=== PATIENT | male | born 1960 | race Caucasian/White ===

== ENCOUNTER → 2018-05-14 14:01 | Outpatient (CLI) | payer OTHER, SELFPAY ==
--- NOTE | 2018-05-14 15:41 | DIET.PN ---
Met for an initial nutrition consultation. Recently dx HIV +. Has been dealing w/depression as a result. Made decision to really start taking care of himself - lose wt, meditation, eat right, etc. Takes a lot of vitamins per recs for HIV. Months ago pt's son put him on a strict fasting diet - fasting for 12-16 hr daily (8pm to 10am), limiting portions and exercise. STarted running 5mi daily or 50mi/week. Lost 37# and B/P decreased. But continues to be plagued by GI discomfort while has been a problem since he was a child, though seems even worse. DX: hyperlipidemia, lactose intolerance, IBS (self dx) GI SX: diarrhea 4-5X daily, urgency, bloating, stomach cramps. Reports sx improved when cut out dairy, but still has frequent episodes - when dining out, after eating pasta or bread. Ht: 69 Wt: 191# Down from 228# Wt Goal: 185# Meds/supplements: B/P med, Genvoya (HIV), statin, Fish oil, MVI, Vit D-2000IU, Vit C-1000IU, [id number] (RDI 2.4mcg), beta carotene 25,000IU, Turmeric-1000mg, Green tea Assessment: Symptoms described sound like IBS. In particular, pt may not tolerate fructans and lactose. Intervention: Provided ed on IBS, FODMAPS and FODMAP elimination/challenge diet. Reviewed diet for hyperlipidemia - suspect lipids will come down w/wt loss and exercise. Plan: Pt will purchase book, Free at Last Elimination diet for 2 weeks Keep food and symptom journal F/U in 3 weeks to pursue challenge phase
== END ==
PROVIDERS: Visit Provider Family Medicine
DX: E78.5 Hyperlipidemia, unspecified (principal)
CPT/HCPCS: 97802

== ENCOUNTER → 2018-06-04 15:13 | Outpatient (CLI) | payer OTHER, SELFPAY ==
--- NOTE | 2018-06-04 15:58 | DIET.PN ---
Met for f/u consultation. Troy purchased the IBS book - an older version, unfortunately as it does not contain as much up to date information. He did follow the elimination diet with only 2 exceptions: One meal, his added something that affected him and on his birthday, he added onions to dish we prepared. He did not react to the onions. For two weeks on the elimination diet, Troy had no GI symptoms other than the one incident mentioned above. He felt normal for first time in many years and is excited to move on to the challenge phase. DX: GI issues, presumed IBS Assessment: Absence of GI issues while on elimination diet suggests the highly fermentable carbohydrates are his problem. We now have the task of narrowing down which ones. Intervention: Since pt added onions, suggested he start with a challenge of the Fructans group which includes onions. This will help rule out any intolerance to this category of FODMAPs. Challenge is done in 2 days to be followed by 3 days of elimination diet before trying challenging another category. Printed instructions on challenge phase and worksheets, as pt's book did not contain these. Overall, challenge phase should last about one month. Plan: Challenge Fructans, followed by the 4 other categories of FODMAPs. To keep records of which foods he challenges and his reactions. If needs f/u at that point will call for appointment, otherwise, may proceed with working out limitations of FODMAPS he does not tolerate.
== END ==
PROVIDERS: Visit Provider Family Medicine
DX: K58.9 Irritable bowel syndrome, unspecified (principal)
CPT/HCPCS: 97803

== ENCOUNTER → 2018-07-27 13:44 | Outpatient (CLI) | payer OTHER, SELFPAY ==
[2018-07-27 16:26] LABS: Urine N gonorrhoeae DETECTED
[2018-07-27 16:38] LABS: Urine Chlamydia NOT DETECTED
== END ==
PROVIDERS: Visit Provider Physician Assistant
DX: R30.0 Dysuria (principal)
CPT/HCPCS: 87491; 87591

== ENCOUNTER → 2020-03-12 09:35 | Outpatient (CLI) | payer OTHER, SELFPAY ==
[2020-03-12 10:40] LABS: Hemoglobin A1C% w Est Avg Glu 4.8 % (4.0-6.0)
[2020-03-12 11:03] LABS: Cholesterol 109 mg/dL (140-199); HDL Cholesterol 41 mg/dL (40-60); LDL Cholesterol Calculated 59 mg/dL (<100); Triglycerides 46 mg/dL (35-150)
[2020-03-13 05:21] LABS: RPR Screen Non Reactive (Non Reactive)
[2020-03-13 08:36] LABS: HCV AB <0.1 s/co ratio (0.0-0.9)
== END ==
PROVIDERS: PCP Family Medicine; Referring Provider Family Medicine; Visit Provider Family Medicine
DX: Z13.1 Encounter for screening for diabetes mellitus (principal); Z13.220 Encounter for screening for lipoid disorders
CPT/HCPCS: 36415; 80061; 83036; 86592; 86803

== ENCOUNTER → 2020-08-30 12:27 | Outpatient (CLI) | payer OTHER, SELFPAY ==
[2020-08-30] MEDS: COVID-19 VACC, Ad26(JANSSEN)/PF 0.5 ML IM (12:34)
== END ==
PROVIDERS: PCP Family Medicine; Visit Provider Internal Medicine
DX: Z23 Encounter for immunization (principal)
CPT/HCPCS: 0031A; 91303

== ENCOUNTER 2020-09-02 16:49 | Emergency (ER) | payer OTHER, SELFPAY ==
[2020-09-02 16:56] VITALS: BP 175/81; PULSE 63; RESP 18; TEMP 36.7; O2SAT 98; BMI 27.8
--- NOTE | 2020-09-02 16:56 | DI.RAD.S_ITS ---
PROCEDURE: XR CHEST 1V INDICATIONS: chest pain TECHNIQUE: One view of the chest was acquired. COMPARISON: [facility], , CHEST 2 VIEW, 08/01/2012, 10:11. FINDINGS: Surgical changes and devices: None. Lungs and pleura: Lungs are clear. No pleural effusions or pneumothorax. Mediastinum: Mediastinal contours appear normal. Heart size is normal. Bones and chest wall: No suspicious bony lesions. Overlying soft tissues appear unremarkable. IMPRESSION: No acute cardiopulmonary abnormality. Dictated by: Shakir Langley M.D. on 09/02/2020 at 16:21 Approved by: Shakir Langley M.D. on 09/02/2020 at 16:22
--- NOTE | 2020-09-02 17:03 | ED_ITS ---
HPI - General Adult General Chief complaint: Chest Pain Stated complaint: chest pressure, HBP Time Seen by Provider: 09/02/20 17:01 Source: patient Mode of arrival: Ambulatory Limitations: no limitations History of Present Illness HPI narrative: Patient is a 60-year-old male. Has a history of hypertension and is also HIV positive. He states that in June his viral load was 0. He does not know what his CD4 count was. He is taking his medications. He is also taking his blood pressure medicines. He states that he has been very stressed recently due to issues at home and also with his boyfriend and also with work. He states that for the past week he has had left-sided pressure. Has been on and off with more times having the symptoms that not although he does state that there have been episodes where he is not having symptoms. It does seem to get worse and better. This does not seem to be associated with movement or palpation or breathing. He was having the discomfort at the time of my exam. He thought that it started when he was talking with his primary doctor just prior to arrival and became very anxious about the symptoms. Related Data Home Medications Medication Instructions Recorded Confirmed elviteg 150 mg-cob 150 mg-emtricit 1 tab PO DAILY 07/27/18 07/27/18 200 mg-tenofo alafenam 10 mg tablet Previous Rx's Medication Instructions Recorded azithromycin 250 mg tablet 1,000 mg PO ONCE #4 tab 07/27/18 Allergies Allergy/AdvReac Type Severity Reaction Status Date / Time No Known Drug Allergies Allergy Verified 09/02/20 17:03 Review of Systems Constitutional Constitutional: Denies fever(s) and Denies headache(s) ENT Ears, Nose, Mouth, and Throat: Denies headache(s) Cardiovascular Cardiovascular: Reports chest pain, Denies rapid heart rate, Denies irregular heart rhythm and Denies dyspnea Respiratory Respiratory: Denies cough and Denies dyspnea Gastrointestinal Gastrointestinal: Denies abdominal pain, Denies nausea and Denies vomiting Genitourinary Genitourinary: Denies dysuria Genitourinary: Denies dysuria Musculoskeletal Musculoskeletal: Denies arthralgias and Denies myalgias Integumentary/Breasts Skin/Breast: Denies rash Neurologic Neurologic: Denies behavioral changes and Denies headache(s) Psychiatric Psychiatric: Denies behavioral changes Hematologic/Lymphatic On Anticoagulants: No Allergic/Immunologic Allergic/Immunologic: Denies urticaria Patient History Medical History HIV (human immunodeficiency virus infection) Hypertension Social History Smoking Status: Former smoker Smoking Status: Former smoker Exam Initial Vital Signs Initial Vital Signs: Vital Signs Temperature 98.0 F 09/02/20 16:56 Pulse Rate 63 09/02/20 16:56 Respiratory Rate 18 09/02/20 16:56 Blood Pressure 175/81 H 09/02/20 16:56 Pulse Oximetry 98 09/02/20 16:56 Const General: cooperative and comfortable Limitations: mental status not altered HENMT Head: normal to inspection and normocephalic Chest Chest: No crepitus and No tenderness Resp Effort & Inspection: normal respiratory effort Auscultation: clear to auscultation bilaterally Cardio Rate: regular rate Rhythm: regular rhythm GI Inspection: non-distended Palpation: soft Skin Lesions: no lesions Rashes: no rashes Neuro General: patient alert, patient awake and patient oriented x3 Extrem General: capillary refill normal and No edema Psych Appearance: grossly normal and well kempt Scores GCS [place] coma scale eye opening: Spontaneous [place] coma scale verbal response: Orientated [place] coma scale motor response: Obey commands [place] coma scale total score: 15 HEART Score Heart Score history: Slightly Suspicious Heart Score EKG: Normal Heart Score Age: 45-64 years old Heart Score risk factors: 1-2 risk factors Heart Score troponin: < or = to normal limit Heart Score Total: 2 Course Orders Ordered: ED Orders 09/02/20 16:56 XR chest 1V Stat EKG-12 Lead Stat 09/02/20 17:05 Complete Blood Count AUTO DIFF Stat Comprehensive Metabolic Panel Stat Lipase Stat Partial Thromboplastin Time Stat Prothrombin Time INR Stat Troponin & CK Cardiac Panel Stat Vital Signs Vital signs: Vital Signs - 8 hr 09/02/20 16:56 Temperature 98.0 F Pulse Rate 63 Respiratory Rate 18 Blood Pressure 175/81 H Pulse Oximetry 98 Medical Decision Making Lab Data Lab results reviewed: Yes I reviewed the patient's lab results. Result diagrams: 09/02/20 17:05 09/02/20 17:05 Labs: Lab Results 09/02/20 09/02/20 09/02/20 Range/Units 17:05 17:05 17:05 WBC 4.9 (4.5-11.0) X10^3/uL RBC 4.03 L (4.5-5.9) X10^6/uL Hgb 13.7 (13.5-17.5) g/dL Hct 39.2 L (41-53) % MCV 97.4 (80-100) fL MCH 34.0 (26-34) PG MCHC 34.9 (30-36) % RDW 12.9 (11.6-14.8) % Plt Count 201 (150-400) X10^3/uL Neut % (Auto) 44.5 L (50-75) % Lymph % (Auto) 47.0 H (25-40) % Crawford % (Auto) 5.7 (3-14) % Eos % (Auto) 2.2 (2-4) % Baso % (Auto) 0.6 (0-2) % Neut # (Auto) 2200 (2447-8855) /uL Lymph # (Auto) 2300 (8826-4686) /uL Crawford # (Auto) 300 (0-900) /uL Eos # (Auto) 100 (0-450) /uL Baso # (Auto) 0 (0-100) /uL PT 12.0 (10.1-12.7) SECONDS INR 1.1 (0.9-1.3) APTT 31 (26.4-36.2) SECONDS Sodium 137 (137-145) mmol/L Potassium 3.9 (3.4-5.1) mmol/L Chloride 105 (98-107) mmol/L Carbon Dioxide 25 (22-32) mmol/L BUN 18 (9-20) mg/dL Creatinine 0.85 (0.66-1.25) mg/dL Estimated GFR > 60.0 (>60) mL/min BUN/Creatinine Ratio 21.2 (6-22) Glucose 90 (70-100) mg/dL Calcium 8.7 (8.4-10.2) mg/dL Total Bilirubin 0.3 (0.2-1.3) mg/dL AST 24 (17-59) IU/L ALT 25 (<50) IU/L Alkaline Phosphatase 67 (38-126) U/L Total Creatine Kinase 49 L (55-170) U/L CK-MB (CK-2) TNP CK-MB (CK-2) Rel Index TNP Troponin I < 0.012 (0.01-0.034) ng/mL Total Protein 7.1 (6.3-8.2) g/dL Albumin 4.4 (3.5-5.0) g/dL Globulin 2.7 (1.7-4.1) g/dL Albumin/Globulin Ratio 1.6 (1.0-2.8) Lipase 143 (23-300) U/L Imaging Data Chest x-ray: Radiologist's Impression: [address] [id number] ReportSigned Patient: Troy Zamudio LMR#: [id number]: 1960cct:[id number]/Sex: 60 / MDate of Service: 09/02/20Loc: EDAccession Number: [id number] Procedure: XR chest 1V Ordering Provider: Stephen Garcia D.O. PROCEDURE: XR CHEST 1V INDICATIONS: chest pain TECHNIQUE: One view of the chest was acquired. COMPARISON: [facility], , CHEST 2 VIEW, 08/01/2012, 10:11. FINDINGS: Surgical changes and devices: None. Lungs and pleura: Lungs are clear. No pleural effusions or pneumothorax. Mediastinum: Mediastinal contours appear normal. Heart size is normal. Bones and chest wall: No suspicious bony lesions. Overlying soft tissues appear unremarkable. IMPRESSION: No acute cardiopulmonary abnormality. Dictated by: Shakir Langley M.D. on 09/02/2020 at 16:21 Approved by: Shakir Langley M.D. on 09/02/2020 at 16:22 ECG Data Attestation: I personally reviewed and interpreted this ECG as follows: Prior ECG tracings: not available for review Interpretation: Sinus rhythm Ventricular rate is 63 Normal axis Normal QRS Normal QTC No ST T wave changes MDM Narrative Medical decision making narrative: Patient has a low risk heart score. EKG is unremarkable. Troponin is negative. He is HIV positive but states that his last viral load was 0 and that was approximately 2 months ago. Had a discussion with him regarding his symptoms. We discussed keeping him here in the emergency department for repeat troponin versus discharging home and having him follow-up with his primary doctor. He opted to be discharged home without having a repeat troponin. We did discuss the risks and benefits of this. He was given return precautions and follow-up instructions. He expressed understanding and agreement. Discharge Plan Departure Patient Disposition: Home Clinical Impression: Atypical chest pain Instructions: DI for Atypical Chest Pain Activity Restrictions/Additional Instructions: Continue all of your medications as directed. Tomorrow contact your primary doctor to discuss further evaluation to include indications for a stress test. Return to the emergency department for any new or worsening symptoms Prescriptions: No Action Genvoya [id number] mg tablet 1 tab PO DAILY RF: 0 azithromycin 250 mg tablet 1,000 mg PO ONCE Qty: 4 RF: 0 Referrals: Kev Massey MD [Primary Care Provider] -
[2020-09-02 17:14] LABS: Add Manual Diff / Slide Review NO; Basophils Absolute Auto 0 /uL (0-100); Basophils Percent Auto 0.6 % (0-2); Eosinophils Absolute Auto 100 /uL (0-450); Eosinophils Percent Auto 2.2 % (2-4); Hematocrit 39.2 % (41-53); Hemoglobin 13.7 g/dL (13.5-17.5); Lymphocytes Absolute Auto 2300 /uL (1100-4500); Mean Corpuscular HGB Conc 34.9 % (30-36); Mean Corpuscular Volume 97.4 fL (80-100); Monocytes Absolute Auto 300 /uL (0-900); Monocytes Percent Auto 5.7 % (3-14); Neutrophils Absolute Auto 2200 /uL (1500-7000); Neutrophils Percent Auto 44.5 % (50-75); Platelet Count 201 X10^3/uL (150-400); Red Blood Cell Count 4.03 X10^6/uL (4.5-5.9); Red Cell Distribution Width 12.9 % (11.6-14.8); White Blood Cell Count 4.9 X10^3/uL (4.5-11.0)
[2020-09-02 17:20] LABS: INR 1.1 (0.9-1.3)
[2020-09-02 17:23] LABS: PTT Partial Thromboplastin Tim 31 SECONDS (26.4-36.2)
[2020-09-02 17:26] LABS: Alanine Aminotransferase 25 IU/L (<50); Albumin 4.4 g/dL (3.5-5.0); Albumin Globulin Ratio 1.6 (1.0-2.8); Alkaline Phosphatase 67 U/L (38-126); Aspartate Aminotransferase 24 IU/L (17-59); BUN Creatinine Ratio 21.2 (6-22); Bilirubin Total 0.3 mg/dL (0.2-1.3); Blood Urea Nitrogen 18 mg/dL (9-20); Calcium 8.7 mg/dL (8.4-10.2); Carbon Dioxide 25 mmol/L (22-32); Chloride 105 mmol/L (98-107); Creatine Kinase 49 U/L (55-170); Estimated Glomerular Filt Rate > 60.0 mL/min (>60); Globulin 2.7 g/dL (1.7-4.1); Glucose 90 mg/dL (70-100); HEMOLYSIS 18 (0-50); Lipase 143 U/L (23-300); Potassium 3.9 mmol/L (3.4-5.1); Sodium 137 mmol/L (137-145); Total Protein 7.1 g/dL (6.3-8.2)
[2020-09-02 17:37] LABS: Troponin I < 0.012 ng/mL (0.01-0.034)
[2020-09-02 18:03] VITALS: BP 142/73; PULSE 55; RESP 13; O2SAT 96
== END 2020-09-02 18:03 | disposition home or self-care (01) ==
PROVIDERS: Emergency Provider Emergency Medicine; PCP Family Medicine; Referring Provider Family Medicine
DX: R07.89 Other chest pain (principal); I10 Essential (primary) hypertension; Z21 Asymptomatic human immunodeficiency virus [HIV] infection status
CPT/HCPCS: 36415; 71045; 80053; 82550; 83690; 84484; 85025; 85610; 85730; 93005; 93010; 99283; 99284